=== PATIENT | female | born 1960 | race Caucasian/White ===

== ENCOUNTER 2022-07-08 11:08 | Outpatient (REF) | payer OTHER, SELFPAY ==
--- NOTE | ~2022-07-08 | XR_ITS ---
EXAMINATION: CR X-RAY HANDS BILATERAL CLINICAL INFORMATION: Bilateral hand pain. COMPARISON: None TECHNIQUE: 3 views each of the bilateral hands were obtained. FINDINGS: Left: An indicator arrow points to the fifth metacarpal phalangeal joint. Nonacute deformity seen in the fifth metatarsal diaphysis. The remainder the digits are intact. The carpal bones are normally aligned. The distal radius and ulna are intact but there is mild to moderate soft tissue swelling. Right: An indicator arrow points to the dorsal aspect of the metacarpals and the lateral projection. There is no acute fracture or dislocation. The carpal bones are normally aligned. The distal radius and ulna are intact. There is mild to moderate soft tissue swelling. XR/XR hand LT min 3V IMPRESSION: 1. Deformity in the diaphysis of the left fifth metacarpal has the appearance of an old healed fracture. Correlate with physical exam and trauma history. A definitive acute osseous abnormality bilaterally is not seen. 2. Mild to moderate bilateral hand soft tissue swelling.
--- NOTE | ~2022-07-08 | XR_ITS ---
EXAMINATION: XR BILATERAL HIPS WITH AP PELVIS CLINICAL INFORMATION: Bilateral hip pain. COMPARISON: None TECHNIQUE: AP view of the pelvis and single views of each hip were obtained. FINDINGS: Mild to moderate bilateral hip and pubic symphysis degenerative joint changes are seen. Mild pincer femoroacetabular impingement bilaterally. There is no acute fracture or dislocation. The bony pelvis is intact. The soft tissues are unremarkable. XR/XR hips SHAZIA min 3V IMPRESSION: 1. Mild to moderate bilateral hip osteoarthritis and mild pincer femoroacetabular impingement. No acute abnormality.
--- NOTE | ~2022-07-08 | XR_ITS ---
EXAMINATION: CR X-RAY HANDS BILATERAL CLINICAL INFORMATION: Bilateral hand pain. COMPARISON: None TECHNIQUE: 3 views each of the bilateral hands were obtained. FINDINGS: Left: An indicator arrow points to the fifth metacarpal phalangeal joint. Nonacute deformity seen in the fifth metatarsal diaphysis. The remainder the digits are intact. The carpal bones are normally aligned. The distal radius and ulna are intact but there is mild to moderate soft tissue swelling. Right: An indicator arrow points to the dorsal aspect of the metacarpals and the lateral projection. There is no acute fracture or dislocation. The carpal bones are normally aligned. The distal radius and ulna are intact. There is mild to moderate soft tissue swelling. XR/XR hand RT min 3V IMPRESSION: 1. Deformity in the diaphysis of the left fifth metacarpal has the appearance of an old healed fracture. Correlate with physical exam and trauma history. A definitive acute osseous abnormality bilaterally is not seen. 2. Mild to moderate bilateral hand soft tissue swelling.
[2022-07-08 13:35] LABS: MANUAL DIFF FLAG NO
[2022-07-08 13:48] LABS: Basophils Percent Auto 0.5 % (0-2); Eosinophils Absolute Auto 0.3 X10*3/uL (0.0-0.4); Eosinophils Percent Auto 4.6 % (0-4); Hematocrit 40.3 % (37.0-47.0); Hemoglobin 13.1 g/dl (12.0-16.0); Imm Gran Abs Auto 0.03 X10*3/uL (0.00-0.03); Imm Gran Pct Auto 0.4 % (0.0-0.4); Lymphocytes Absolute Auto 2.1 X10*3/uL (1.2-4.9); Lymphocytes Percent Auto 27.9 % (20-40); Mean Corpuscular HGB Conc 32.5 g/dl (31.0-35.0); Mean Corpuscular Hemoglobin 29.1 pg (27.0-33.0); Mean Corpuscular Volume 89.6 fL (80.0-98.0); Mean Platelet Volume 11.5 fL (9.4-12.3); Monocytes Absolute Auto 0.4 X10*3/uL (0.1-1.2); Monocytes Percent Auto 5.4 % (2-11); Neutrophils Absolute Auto 4.5 x10*3/uL (2.0-8.3); Neutrophils Percent Auto 61.2 % (45-73); Platelet Count 142 X10*3/uL (160-400); White Blood Count 7.4 X10*3/uL (4.8-10.8)
[2022-07-08 13:52] LABS: Anion Gap 13 (12-20); Blood Urea Nitrogen 17 mg/dL (9-16); C Reactive Protein 1.19 mg/dL (< or = 0.50); Calcium 9.5 mg/dL (8.4-10.2); Carbon Dioxide 29 mmol/L (22-29); Chloride 104 mmol/L (96-108); Estimated Glomerular Filt Rate > 60; Glucose Random 124 mg/dL (60-115); Potassium 3.7 mmol/L (3.3-5.1); Sodium 142 mmol/L (135-145)
[2022-07-08 14:41] LABS: Erythrocyte Sedimentation Rate 17 MM/HR (0-20)
== END 2022-07-08 11:09 | disposition home or self-care (01) ==
LOC: HO.10HDL 11:08
PROVIDERS: PCP Internal Medicine; Visit Provider Internal Medicine Rheumatology
DX: M79.641 Pain in right hand (principal); M79.642 Pain in left hand; M25.551 Pain in right hip; M25.552 Pain in left hip; L40.50 Arthropathic psoriasis, unspecified; M65.9 Synovitis and tenosynovitis, unspecified; M79.7 Fibromyalgia; Z79.4 Long term (current) use of insulin; Z79.1 Long term (current) use of non-steroidal anti-inflammatories (NSAID); Z79.899 Other long term (current) drug therapy
CPT/HCPCS: 20550; 36415; 73130; 73522; 80048; 85025; 85652; 86140; 99212

== ENCOUNTER → 2022-08-09 13:14 | Outpatient (BNVA) | payer OTHER, SELFPAY | PROVIDERS: PCP Internal Medicine; Referring Provider Internal Medicine; Visit Provider Internal Medicine Rheumatology | DX: L40.9 Psoriasis, unspecified (principal); M16.0 Bilateral primary osteoarthritis of hip; M47.812 Spondylosis without myelopathy or radiculopathy, cervical region; M47.816 Spondylosis without myelopathy or radiculopathy, lumbar region; M79.7 Fibromyalgia; Z79.1 Long term (current) use of non-steroidal anti-inflammatories (NSAID) | CPT/HCPCS: 99212 ==

== ENCOUNTER → 2023-02-08 11:12 | Outpatient (BNVA) | payer OTHER, SELFPAY | PROVIDERS: PCP Internal Medicine; Visit Provider Internal Medicine Rheumatology | DX: L40.9 Psoriasis, unspecified (principal); M47.816 Spondylosis without myelopathy or radiculopathy, lumbar region; M16.0 Bilateral primary osteoarthritis of hip | CPT/HCPCS: 99212 ==

== ENCOUNTER 2024-04-09 12:55 | Outpatient (AMB) | payer OTHER, SELFPAY ==
--- NOTE | 2024-04-09 13:05 | MHC.OFFVIS ---
Vital Signs 04/09/24 13:10 Height 5 ft 2 in Weight 151 lb 10.848 oz BMI 27.7 BP 124/62 Blood Pressure Location Rt brachial Position Sitting Pulse 62 Pulse Source Pulse Oximeter Pulse Oximetry (%) 97 Oxygen Delivery Method Room Air Intake Visit Reasons: PSA Intake Note: Patient presents for PsA. Strand [employer] B[employer] Controller Required: Yes Strand And Binder Controller Language: [employer]ing [employer]: Strand And Binder Controller Present Strand And Binder Controller Name: Randee [id number] Information Interpreted: non-clinical & clinical Allergies acetaminophen [From Percocet] Allergy (Intermediate, Verified 04/09/24 13:08) itchiness lisinopril Allergy (Intermediate, Verified 04/09/24 13:08) Cough oxycodone [From Percocet] Allergy (Intermediate, Verified 04/09/24 13:08) itchiness rifampin Allergy (Intermediate, Verified 04/09/24 13:08) Rash [id number] Reductase Inhibitor Allergy (Intermediate, Verified 04/09/24 13:08) Muscle Pain Medication List - Last Reconciled 04/09/24 by Colin Lott MD albuterol sulfate 90 mcg/actuation (Ventolin HFA) 2 puffs inhalation Q6H apremilast (Otezla) 30 mg PO BID aspirin (Adult Low Dose Aspirin) 81 mg PO DAILY atenolol 100 mg PO DAILY cetirizine (Zyrtec) 10 mg PO DAILY PRN clonidine HCl 0.2 mg PO BID hydrochlorothiazide 25 mg PO DAILY insulin glargine (Lantus Solostar U-100 Insulin) 10 units subcut QPM levothyroxine 175 mcg PO DAILY naproxen 250 mg PO BID PRN olmesartan (Benicar) 20 mg PO DAILY omega [id number]-fish oil 1,000 mg (120 mg-180 mg) (Fish Oil) 1 cap PO TID pravastatin 40 mg PO DAILY tacrolimus 0.1% 1 appl topical BID tizanidine 2 - 4 mg (1 - 2 x 2 mg) PO BEDTIME PRN HPI Comments Details: This is a 63-year-old female with psoriasis, osteoarthritis and fibromyalgia who presents for follow-up. She states that she has diffuse pain everywhere. Especially her lower back, her hips, her hands. She states that her pain is deep. She is on Otezla for her psoriasis. [facility] Medical History Allergic conjunctivitis Diabetes Depression Carpal tunnel syndrome Fatty liver PPD positive Venous insufficiency Low back pain History of ITP Fibromyalgia Psoriasis PSA (psoriatic arthritis) Metabolic syndrome Elevated LFTs Surgical History History of laparoscopic cholecystectomy History of carpal tunnel release Social History Household Members: Spouse Housing: House Alcohol intake: never Patient Tobacco Use Status: Never used Tobacco service: No Current occupational status: employed Current occupation: [employer] in [employer] Review of Systems [employer] Reports back pain, Reports arthralgias, Denies joint swelling and Reports stiffness Physical Exam Vital Signs: Last Vital Signs Pulse 62 04/09/24 13:10 BP 124/62 04/09/24 13:10 Pulse Ox 97 04/09/24 13:10 Oxygen Delivery Method Room Air 04/09/24 13:10 BMI result Body Mass Index 27.7 Const General: cooperative, healthy appearing and comfortable Nutritional Appearance: overweight Orientation/consciousness: patient oriented x3 Limitations: no limitations HEENT Head: Yes normocephalic and Yes atraumatic Mouth: moist mucous membranes Resp Effort & Inspection: normal respiratory effort and able to speak in complete sentences Auscultation: clear to auscultation bilaterally Cardio Rate: regular rate Skin General skin exam: no rashes or lesions noted Neuro General: patient oriented x3 Extrem Other: Mild osteoarthritic changes of both hands, some puffiness across the left hand MCPs but no tenderness and negative MCP squeeze test Normal bilateral hand shearing shed hand strength Normal range of motion of hands, elbows and shoulders without pain Nail ridges bilaterally Results Reviewed Results Reviewed: [address] [address] XRay Report Signed Patient: Alyson Farmer MR#: [id number] : 1960 Acct:[id number] Age/Sex: 61 / F ADM Date: 07/08/[address]: Jose Main MD Ordering Physician: Jose Main MD Date of Service: 07/08/22 Procedure(s): XR hips SHAZIA min 3V Accession Number(s): [id number] cc: Jose Main MD~ EXAMINATION: XR BILATERAL HIPS WITH AP PELVIS CLINICAL INFORMATION: Bilateral hip pain. COMPARISON: None TECHNIQUE: AP view of the pelvis and single views of each hip were obtained. FINDINGS: Mild to moderate bilateral hip and pubic symphysis degenerative joint changes are seen. Mild pincer femoroacetabular impingement bilaterally. There is no acute fracture or dislocation. The bony pelvis is intact. The soft tissues are unremarkable. XR/XR hips SHAZIA min 3V IMPRESSION: 1.? Mild to moderate bilateral hip osteoarthritis and mild pincer femoroacetabular impingement. No acute abnormality. ? ? Dictated By: Giovany Jackson MD Signed By: <Electronically signed by Giovany Jackson MD in OV> 07/15/22 1646 Assessment & Plan Assessment & Plan (1) PSA (psoriatic arthritis): Comment: 2016: trial of sulfasalazine not effective Humira started 10/17 Changed to Enbrel 03/16 - given for psoriasis - stopped 2018 ? reason no synovitis Otezla prescribed for PSO 01/2024 Code(s): L40.50 - Arthropathic psoriasis, unspecified Category: Medical Plan: This is a 63-year-old female with history of psoriasis, osteoarthritis and fibromyalgia who presents for follow-up. Upon evaluation I do not see any active synovitis. Clinical picture consistent with osteoarthritis and fibromyalgia Discussed management of fibromyalgia with patient. Is a noninflammatory, non-autoimmune central afferent processing disorder leading to a diffuse pain syndrome. Discussed with patient that there might be underlying anxiety/depression that may benefit from evaluation by a psychologist. Try to follow sleep hygiene practices. Consider a sleep study to rule out ALFRED. Patient would benefit from increased physical activity, either through formal physical therapy or by joining a gym. Advised patient that she should start activity slowly and increase as tolerated. Consider low-impact exercises such as walking, swimming, aqua therapy stretching, yoga. Follow-up with PCP (2) Osteoarthritis of lumbar spine: Code(s): M47.816 - Spondylosis without myelopathy or radiculopathy, lumbar region Category: Medical Qualifiers: Spinal osteoarthritis complication: without myelopathy or radiculopathy Qualified Code(s): M47.816 - Spondylosis without myelopathy or radiculopathy, lumbar region (3) Osteoarthritis, hip, bilateral: Code(s): M16.0 - Bilateral primary osteoarthritis of hip Category: Medical Qualifiers: Osteoarthritis type: primary Qualified Code(s): M16.0 - Bilateral primary osteoarthritis of hip (4) Psoriasis: Code(s): L40.9 - Psoriasis, unspecified Category: Medical Plan: On Otezla prescribed by Dermatology (5) Fibromyalgia: Code(s): M79.7 - Fibromyalgia Category: Medical Plan I spent 30 minutes reviewing patient's chart, evaluating patient, counseling patient and documenting in the chart Coding Level of Care Code Est Pt Level 4 (64007) Diagnoses PSA (psoriatic arthritis) L40.50 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
[2024-04-09 13:10] VITALS: BP 124/62; PULSE 62; O2SAT 97; BMI 27.7
== END 2024-04-09 13:56 | disposition home or self-care (01) ==
PROVIDERS: PCP Internal Medicine; Visit Provider Student in an Organized Health Care Education/Training Program
DX: L40.50 Arthropathic psoriasis, unspecified (principal); M47.816 Spondylosis without myelopathy or radiculopathy, lumbar region; M16.0 Bilateral primary osteoarthritis of hip; L40.9 Psoriasis, unspecified; M79.7 Fibromyalgia
CPT/HCPCS: 99214

== ENCOUNTER → 2024-04-09 12:55 | Outpatient (BNVA) | payer OTHER, SELFPAY | PROVIDERS: PCP Internal Medicine; Visit Provider Student in an Organized Health Care Education/Training Program | DX: M79.7 Fibromyalgia (principal); L40.50 Arthropathic psoriasis, unspecified; Z79.899 Other long term (current) drug therapy; M47.816 Spondylosis without myelopathy or radiculopathy, lumbar region; M16.0 Bilateral primary osteoarthritis of hip | CPT/HCPCS: 99212 ==